=== PATIENT | female | born 1985 | race Caucasian/White ===

== ENCOUNTER 2022-01-24 10:15 | Emergency (ER) | payer MEDICAID ==
[~2022-01-24] VITALS: Ht 172.7 cm; Wt 65.8 kg
[2022-01-24 10:35] VITALS: BP 136/79
[2022-01-24] MEDS ORDERED: NAPROXEN 250 MG TABLET PO ONE (11:00)
[2022-01-24] MEDS ORDERED: NAPROXEN 250 MG TABLET ONE (11:12)
--- NOTE | 2022-01-24 11:18 | NUR ---
xray at bedside
--- NOTE | 2022-01-24 13:23 | NUR ---
FOLLOWED UP WITH RADIOLOGIST, PER [facility] "THEY ARE WORKING ON IT"
== END 2022-01-24 14:17 | disposition home or self-care (01) ==
LOC: ER 10:29
DX: S67.190A Crushing injury of right index finger, initial encounter (principal); W23.0XXA Caught, crushed, jammed, or pinched between moving objects, initial encounter; Y93.89 Activity, other specified; Y92.89 Other specified places as the place of occurrence of the external cause; Y99.8 Other external cause status
CPT/HCPCS: 73140-TC